=== PATIENT | female | born 1965 ===

== ENCOUNTER 2017-01-02 11:26 | Day surgery (SDC) | payer MEDICARE ==
[2016-12-25 11:36] VITALS: BMI 31.8
[2017-01-02] MEDS ORDERED: Propofol 10 mg/ml Inj (20 ML) ONE (13:10)
[2017-01-02] MEDS ORDERED: Sodium Chloride 0.9% 1,000 ML IV SCH (13:45)
[2017-01-02 14:41] VITALS: BP 131/73; PULSE 50; RESP 16; TEMP 97.7; O2SAT 99
== END 2017-01-02 15:00 | disposition home or self-care (01) ==
LOC: ENDO 11:26
PROVIDERS: ATTEND Internal Medicine Gastroenterology
DX: Z12.11 Encounter for screening for malignant neoplasm of colon (principal); K64.8 Other hemorrhoids
CPT/HCPCS: 45378; J0171; J2704; J7040

== ENCOUNTER 2017-08-12 08:08 | Emergency (ER) | payer MEDICARE, OTHER ==
[2017-08-12 09:09] VITALS: BMI 28.3
[2017-08-12] MEDS ORDERED: Tmp-Smz 800 mg-160 mg DS Tab PO STA (09:32)
[2017-08-12] MEDS ORDERED: Lidocaine 1% Inj (20ml) ONE (10:37)
--- NOTE | 2017-08-12 11:03 | ED PDOC ---
Arrival/HPI - General Chief Complaint: Abnormal Skin Integrity Time Seen by Provider: 08/12/17 09:24 Historian: Patient - History of Present Illness Narrative History of Present Illness (Text): 08/12/17 11:03 51-year-old female with cyst to the left side of the back that has been increasing in pain over the past 2 weeks. Patient states they tried to squeeze it to get the pus out. Patient states the area is now red and very tender. No medications have been for pain at home. no fever/chills. no cp or sob. no vomiting/diarrhea.pt states she had one cyst like this in the past that needed to be incised. Past Medical History - Provider Review Nursing Documentation Reviewed: Yes - Travel History Have you recently traveled outside [place] w/in the past 3 mons?: No - Past History Past History: Non-Contributing - Infectious Disease Hx of Infectious Diseases: None - Tetanus Immunization Tetanus Immunization: Unknown - Reproductive Menopause: Yes - Past Medical History Past Medical History: No Previous - Cardiac Hx Cardiac Disorders: No Hx Pacemaker: No - Pulmonary Hx Respiratory Disorders: Yes Hx Asthma: Yes - Neurological Hx Paralysis: No - HEENT Hx HEENT Disorder: No - Renal Hx Renal Disorder: No - Endocrine/Metabolic Hx Endocrine Disorders: No - Hematological/Oncological Hx Blood Transfusions: No Hx Blood Transfusion Reaction: No - Integumentary Hx Dermatological Disorder: No - Musculoskeletal/Rheumatological Hx Musculoskeletal Disorders: No - Gastrointestinal Hx Gastrointestinal Disorders: No - Genitourinary/Gynecological Hx Genitourinary Disorders: No - Psychiatric Hx Emotional Abuse: No Hx Physical Abuse: No Hx Substance Use: No - Surgical History Hx Cholecystectomy: Yes Hx Musculoskeletal Surgery: Yes (cervical) - Anesthesia Hx Anesthesia: Yes Hx Anesthesia Reactions: No Hx Malignant Hyperthermia: No - Suicidal Assessment Feels Threatened In Home Enviroment: No Family/Social History - Physician Review Nursing Documentation Reviewed: Yes Family/Social History: Unknown Family HX Smoking Status: Never Smoked Hx Alcohol Use: No Hx Substance Use: No Hx Substance Use Treatment: No Allergies/Home Meds Allergies/Adverse Reactions: Allergies No Known Allergies Allergy (Verified 08/12/17 09:09) Home Medications: Home Meds Medication Instructions Recorded Confirmed Albuterol HFA [Ventolin HFA 90 2 puff IH [id number] 08/12/17 08/12/17 mcg/actuation (8 g)] predniSONE [Prednisone] 20 mg PO DAILY 08/12/17 08/12/17 Review of Systems - Review of Systems Constitutional: absent: Fatigue, Fevers Respiratory: absent: SOB, Cough Cardiovascular: absent: Chest Pain, Palpitations Gastrointestinal: absent: Abdominal Pain, Nausea, Vomiting Skin: Abscess Psychiatric: absent: Anxiety, Depression Physical Exam Vital Signs Reviewed: Yes Vital Signs Temp Pulse Resp BP Pulse Ox 08/12/17 10:08 98.1 F 60 20 130/80 100 08/12/17 08:27 98.2 F 61 18 124/86 99 Temperature: Afebrile Blood Pressure: Normal Pulse: Regular Respiratory Rate: Normal Appearance: Positive for: Well-Appearing, Non-Toxic, Comfortable Pain Distress: None Mental Status: Positive for: Alert and Oriented X 3 - Systems Exam Head: Present: Atraumatic Neck: Present: Normal Range of Motion Respiratory/Chest: Present: Clear to Auscultation, Good Air Exchange. No: Respiratory Distress, Accessory Muscle Use Cardiovascular: Present: Regular Rate and Rhythm, Normal S1, S2. No: Murmurs Back: No: Normal Inspection (left upper back there is a 3cm round tender fluctuant mass with surrounding erythema; ) Medical Decision Making ED Course and Treatment: 08/12/17 11:14 Patient is nontoxic well-appearing in no distress. Vital signs are stable. keflex po Bactrim DS p.o. I&D performed pt reassessment; feeling better. vitals stable. Patient was advised to use warm compresses warm soaks return to the emergency room in 2 days for packing removal. return immediately if symptoms worsen persist or if new symptoms develop Patient verbalizes understanding of discharge instructions and need for immediate followup. all aspects of this case were discussed the attending of record. Impression: Infected sebaceous cyst Motrin one tablet every 6 hours as needed for pain Keflex; 1 capsule 4 times daily x 7 days Bactrim DS: One tablet twice daily x7 days Warm compresses frequently Return in 2 days for packing removal and wound check Follow up with the surgeon within the next 2 days Follow up with the primary care physician within the next 2 days. Return immediately if symptoms worsen persist or if new symptoms develop: High fevers, increasing pain, increasing redness, swelling or if any other concerning symptoms develop. - Medication Orders Current Medication Orders: Discontinued Medications Cephalexin Monohydrate (Keflex) 500 mg PO STAT STA PRN Reason: Protocol Stop: 08/12/17 09:33 Last Admin: 08/12/17 10:52 Dose: 500 mg Ibuprofen (Motrin Tab) 600 mg PO STAT STA Stop: 08/12/17 09:33 Last Admin: 08/12/17 10:53 Dose: 600 mg MAR Pain/Vitals Document 08/12/17 10:53 ACOSTA (Rec: 08/12/17 10:54 RG [id number]) Pain Reassessment Is This A Pain ReAssessment? Yes Sleep Is patient sleeping during reassessment? No Presence of Pain Presence of Pain Yes Pain Scale Used Pain Scale Used Numeric Location Intensity 5 Scale Used Numeric Pain Behavior Irritability Trimethoprim/Sulfamethoxazole (Bactrim Ds Tab) 1 tab PO STAT STA PRN Reason: Protocol Stop: 08/12/17 09:33 Last Admin: 08/12/17 10:53 Dose: 1 tab Procedures - Incision and Drainage Site: abscess, left upper back Blade Size: 11 I & D Procedure: sterile drapes applied, sterile dressing applied, gauze wick placed Progress: Left upper back: Area was prepped and draped using sterile technique. 4 mL of lidocaine injected locally over central fluctuance. Adequate anesthesia. Small quarter inch incision was made over central fluctuance. Moderate amount of purulent discharge released as well as sebaceous material. Wound explored for loculations. Gauze packing placed. Dressing applied. Patient tolerated procedure well. No complications Disposition/Present on Arrival - Present on Arrival Any Indicators Present on Arrival: No History of DVT/PE: No History of Uncontrolled Diabetes: No Urinary Catheter: No History of Decub. Ulcer: No History Surgical Site Infection Following: None - Disposition Have Diagnosis and Disposition been Completed?: Yes Diagnosis: Infected sebaceous cyst of skin Disposition: HOME/ ROUTINE Disposition Time: 11:00 Patient Plan: Discharge Condition: GOOD Discharge Instructions (ExitCare): Abscess (ED) Additional Instructions: Motrin one tablet every 6 hours as needed for pain Keflex; 1 capsule 4 times daily x 7 days Bactrim DS: One tablet twice daily x7 days Warm compresses frequently Return in 2 days for packing removal and wound check Follow up with the surgeon within the next 2 days Follow up with the primary care physician within the next 2 days. Return immediately if symptoms worsen persist or if new symptoms develop: High fevers, increasing pain, increasing redness, swelling or if any other concerning symptoms develop. Prescriptions: Cephalexin [Keflex] 500 mg PO QID #28 capsule Ibuprofen [Motrin] 600 mg PO Q6H PRN #20 tab PRN Reason: pain/fever reduction Sulfamethoxazole/Trimethoprim [Bactrim DS 800 mg-160 mg] 1 tab PO BID #14 tab Referrals: Shara Green MD [Staff Provider] - Follow up with primary Mode Martínez MD [Medical Doctor] - Follow up with primary [facility] [place] - Follow up with primary Forms: [facility] (Fijian), WORK NOTE
[2017-08-12 11:28] VITALS: BP 130/80; PULSE 60; RESP 20; TEMP 98.1; O2SAT 100
== END 2017-08-12 11:00 | disposition home or self-care (01) ==
LOC: ED 08:08
DX: L08.9 Local infection of the skin and subcutaneous tissue, unspecified (principal); L72.3 Sebaceous cyst

== ENCOUNTER 2017-08-14 08:04 | Emergency (ER) | payer MEDICARE, SELFPAY ==
[2017-08-14 08:04] VITALS: BMI 28.3
[2017-08-14 08:20] VITALS: BP 123/81; PULSE 60; RESP 17; TEMP 97.7; O2SAT 98
--- NOTE | 2017-08-14 08:31 | ED PDOC ---
Arrival/HPI - General Chief Complaint: Wound Check Time Seen by Provider: 08/14/17 08:23 Historian: Patient - History of Present Illness Narrative History of Present Illness (Text): 08/14/17 08:24 A 51 year old female, with non-significant past medical history, presents to the emergency department follow up of packing removal. Patient reports she visited the ER 2 days ago for cyst to left side of back. Incision & Drainage procedure was performed to drain pus from wound. Patient denies of any fever, chills, body aches, abdominal pain, or any other complaints at this time. Also, patient notes she has no history of diabetes. PMD: Dr. Zelaya Past Medical History - Provider Review Nursing Documentation Reviewed: Yes - Past History Past History: Non-Contributing - Infectious Disease Hx of Infectious Diseases: None - Tetanus Immunization Tetanus Immunization: Unknown - Past Medical History Past Medical History: No Previous - Cardiac Hx Cardiac Disorders: No Hx Pacemaker: No - Pulmonary Hx Respiratory Disorders: Yes Hx Asthma: Yes - Neurological Hx Paralysis: No - HEENT Hx HEENT Disorder: No - Renal Hx Renal Disorder: No - Endocrine/Metabolic Hx Endocrine Disorders: No - Hematological/Oncological Hx Blood Transfusions: No Hx Blood Transfusion Reaction: No - Integumentary Hx Dermatological Disorder: No - Musculoskeletal/Rheumatological Hx Musculoskeletal Disorders: No - Gastrointestinal Hx Gastrointestinal Disorders: No - Genitourinary/Gynecological Hx Genitourinary Disorders: No - Psychiatric Hx Emotional Abuse: No Hx Physical Abuse: No Hx Substance Use: No - Surgical History Hx Cholecystectomy: Yes Hx Musculoskeletal Surgery: Yes (cervical) - Anesthesia Hx Anesthesia: Yes Hx Anesthesia Reactions: No Hx Malignant Hyperthermia: No - Suicidal Assessment Feels Threatened In Home Enviroment: No Family/Social History - Physician Review Nursing Documentation Reviewed: Yes Family/Social History: No Known Family HX Smoking Status: Never Smoked Hx Alcohol Use: No Hx Substance Use: No Hx Substance Use Treatment: No Allergies/Home Meds Allergies/Adverse Reactions: Allergies No Known Allergies Allergy (Verified 08/14/17 08:25) Home Medications: Home Meds Medication Instructions Recorded Confirmed Albuterol HFA [Ventolin HFA 90 2 puff IH [id number] 08/12/17 08/14/17 mcg/actuation (8 g)] predniSONE [Prednisone] 20 mg PO DAILY 08/12/17 08/14/17 Review of Systems - Physician Review All systems were reviewed & negative as marked: Yes - Review of Systems Constitutional: absent: Fevers, Night Sweats Gastrointestinal: absent: Abdominal Pain Musculoskeletal: absent: Myalgias Physical Exam Vital Signs Temp Pulse Resp BP Pulse Ox 08/14/17 08:20 97.7 F 60 17 123/81 98 08/14/17 08:19 97.7 F 60 17 123/81 98 Temperature: Afebrile Blood Pressure: Normal Pulse: Regular Respiratory Rate: Normal Appearance: Positive for: Well-Appearing, Non-Toxic, Comfortable Pain Distress: None Mental Status: Positive for: Alert and Oriented X 3 - Systems Exam Skin: Present: Warm, Abscess (left upper back 2cm circular abscess with no surrounding erythema, edema or warmth. Packing was removed.) Medical Decision Making ED Course and Treatment: 08/14/17 08:28 Impression: 51 year old female with packing removal from Incision & Drainage 2 days ago. Plan: -- Packing removal -- Reassess and disposition Prior Visits: Notes and results from previous visits were reviewed. Patient was last seen in the emergency department on 08/12/2017 for cyst to the left side of the back associated with incerasing pain. Patient had Incision & Drainage procedure performed and was discharged home afterwards. Progress Notes: 08/14/17 08:53 Patient's packing was removed. Pressure was applied to abscess with approximately 2ml of thick pus drainage. Wound was cleaned and dress applied. Patient will continue taking antibiotics as prescribed. Advised to return to the ED if fever develops, worsening symptoms or any other concerns. - Scribe Statement The provider has reviewed the documentation as recorded by the Hodan Marshall Provider Scribe Attestation: All medical record entries made by the Hodan were at my direction and personally dictated by me. I have reviewed the chart and agree that the record accurately reflects my personal performance of the history, physical exam, medical decision making, and the department course for this patient. I have also personally directed, reviewed, and agree with the discharge instructions and disposition. Disposition/Present on Arrival - Present on Arrival Any Indicators Present on Arrival: No History of DVT/PE: No History of Uncontrolled Diabetes: No Urinary Catheter: No History of Decub. Ulcer: No History Surgical Site Infection Following: None - Disposition Have Diagnosis and Disposition been Completed?: Yes Diagnosis: Abscess Disposition: HOME/ ROUTINE Disposition Time: 08:56 Patient Plan: Discharge Patient Problems: Current Active Problems Problem Status Onset Abscess Acute Condition: IMPROVED Discharge Instructions (ExitCare): Abscess (ED) Additional Instructions: Ms Bhagat, thank you for letting us take care of you today. Your provider was Dr. Bailon. You were treated for Abscess. The emergency medical care you received today was directed at your acute symptoms. If you were prescribed any medication, please fill it and take as directed. It may take several days for your symptoms to resolve. Return to the Emergency Department if your symptoms worsen, do not improve, or if you have any other problems. Please contact your doctor or call one of the physicians/clinics you have been referred to that are listed on the Patient Visit Information form that is included in your discharge packet. Bring any paperwork you were given at discharge with you along with any medications you are taking to your follow up visit. Our treatment cannot replace ongoing medical care by a primary care provider (PCP) outside of the emergency department. Thank you for allowing the [facility] team to be part of your care today. If you had an X-Ray or CT scan: A Radiologist will review the ED reading if any change in treatment is needed we will contact you. If you had a blood, urine, or wound culture: It will take several days for the results, if any change in treatment is needed we will contact you. If you had an STI test: It will take 48 hours for the results. Please call after 1 week if you have not heard back. Referrals: Fahad Zelaya MD [Primary Care Provider] - Follow up with primary Forms: [email or web address] ([place]ese)
== END 2017-08-14 09:10 | disposition home or self-care (01) ==
LOC: ED 08:04
DX: L02.212 Cutaneous abscess of back [any part, except buttock and flank] (principal)

== ENCOUNTER 2017-09-02 10:22 | Day surgery (SDC) | payer MEDICARE, OTHER ==
[2017-09-02 10:46] VITALS: RESP 18; TEMP 98.3; O2SAT 99
[2017-09-02 10:55] VITALS: BMI 29.2
[2017-09-02] MEDS ORDERED: Lidocaine 1% Inj (20ml) ONE (13:27)
[2017-09-02] MEDS ORDERED: Bupivacaine 0.5% Inj(30mL) ONE (13:27)
[2017-09-02 14:52] VITALS: BP 123/69; PULSE 55
--- NOTE | 2017-09-02 15:20 | PCM.SURG1 ---
Surgeon's Initial Post Op Note - Surgeon's Notes Surgeon: Dr. Reveles Wood And Hardware Outfitter: PGY1 Type of Anesthesia: IV Sedation, Local Pre-Operative Diagnosis: cyst on back- left side Operative Findings: infected sebaceous cyst w/ no wall Post-Operative Diagnosis: infected sebaceous cyst Operation Performed: excision and debridement of infected sebaceous cyst Specimen/Specimens Removed: sebaceous cyst Estimated Blood Loss: EBL {In ML}: 3 Blood Products Given: N/A Drains Used: No Drains Post-Op Condition: Good Date of Surgery/Procedure: 09/02/17 Time of Surgery/Procedure: 15:20
[2017-09-02] MEDS ORDERED: Oxycodone/Acetaminophen 5/325 mg Tab PO ONE (15:21)
--- NOTE | 2017-09-11 14:51 | OP ---
PROCEDURE DATE: PREOPERATIVE DIAGNOSIS: Mass of the back. POSTOPERATIVE DIAGNOSIS: Mass of the back. OPERATION PERFORMED: Excision. SURGEON: Dr. Reveles. POCKETED SPRING ASSEMBLER: Dr. Manley. DESCRIPTION OF PROCEDURE: In the operating room, the patient was identified by name, name of the procedure, laterality, and my hao. The area was sebaceous cyst, it was marked out, infiltrated with 1% Xylocaine and taken with an ellipse. There was no clear wall to the cyst, although there was a sebaceous cyst from the material seen in that. Circumferentially dissected and removed all visible inflammation, although it was difficult to tell. The wound was then packed. The patient was taken to same day in good condition. Dion Reveles MD
== END 2017-09-02 15:15 | disposition home or self-care (01) ==
LOC: OPSURG 10:22
PROVIDERS: ATTEND Surgery
DX: L72.0 Epidermal cyst (principal); L72.3 Sebaceous cyst
CPT/HCPCS: 11401; 88304; J2405

== ENCOUNTER 2018-12-10 08:57 | Outpatient (CLI) | payer MEDICARE | END 2018-12-10 08:58 | disposition home or self-care (01) | LOC: RAD 08:57 ==

== ENCOUNTER 2019-02-11 09:28 | Outpatient (CLI) | payer MEDICARE | END 2019-02-11 09:29 | disposition home or self-care (01) | LOC: RAD 09:28 ==